=== PATIENT | female | born 1975 | race African-American/Black ===

== ENCOUNTER 2017-08-03 23:55 | Emergency (ER) | payer BC, OTHER ==
[~2017-08-03] VITALS: Ht 170.2 cm; Wt 117.9 kg
[~2017-08-03 23:55] MED LIST: BENICAR40 MG PO; PRAVASTATIN SOD10 MG PO
[2017-08-04] MEDS ORDERED: COZAAR 25 MG TA25 M1 PO (00:12)
[2017-08-04] MEDS ORDERED: HYDROCHLOROTH12.5 M1 PO (00:12)
[2017-08-04] MEDS ORDERED: LOPRESSOR25 PO (00:12)
[2017-08-04] MEDS ORDERED: PRAVACHOL40 MG PO (00:12)
[2017-08-04] MEDS ORDERED: BACTRIM DS TAB1 EAC1 PO (01:28)
[2017-08-04 02:01] VITALS: BP 128/90
== END 2017-08-04 01:50 | disposition home or self-care (01) ==
LOC: ER 23:55
DX: N76.4 Abscess of vulva (principal); F17.210 Nicotine dependence, cigarettes, uncomplicated; I10 Essential (primary) hypertension; E78.00 Pure hypercholesterolemia, unspecified